=== PATIENT | female | born 1950 | race Caucasian/White ===

== ENCOUNTER 2018-08-19 09:10 | Emergency (ER) | payer MEDICARE ==
[~2018-08-19] VITALS: Ht 160 cm; Wt 67.0 kg
[~2018-08-19 09:10] MED LIST: ALLO100T30 PO; ASPI81TA50 PO; AZIT250T89 PO; BENZ200C2 PO; LEVO100T74 PO; MAGN100T3 PO; OMEP20TA62 PO; PIOG15TA22 PO; SIMV10TA3 PO; TRAZ-136 PO
[2018-08-19] MEDS ORDERED: SODIUM CHLORIDE FLUSH 10ML SYR IVF ONE (10:00)
[2018-08-19 10:33] LABS: BASOPHILS # (AUTO) 0.01 x10^3/uL (0-0.1); BASOPHILS % (AUTO) 0 % (0-1); EOSINOPHILS % (AUTO) 0 % (1-7); LYMPHOCYTES # (AUTO) 1.55 x10^3/uL (1-3.4); LYMPHOCYTES % (AUTO) 22 % (22-44); MD NO; MEAN CORPUSCULAR HEMOGLOBIN 32.7 pg (27.0-34.8); MEAN CORPUSCULAR HGB CONC 33.2 g/dL (32.4-35.8); MEAN CORPUSCULAR VOLUME 98.4 fL (80-100); MEAN PLATELET VOLUME 9.4 fL (7.4-10.4); MONOCYTES # (AUTO) 0.63 x10^3/uL (0.2-0.8); MONOCYTES % (AUTO) 9 % (2-9); NEUTROPHILS # (AUTO) 4.77 x10^3/uL (1.8-6.8); NEUTROPHILS % (AUTO) 69 % (42-75); PLATELET COUNT 121 x10^3/uL (130-400); RED BLOOD COUNT 3.12 x10^6/uL (3.82-5.3)
[2018-08-19 10:45] LABS: ALBUMIN 3.3 g/dL (3.4-5.0); ANION GAP 6 mmol/L (5-15); CALCIUM 9.7 mg/dL (8.5-10.1); CHLORIDE 111 mmol/L (98-107)
[2018-08-19 10:49] LABS: ALANINE AMINOTRANSFERASE 24 U/L (12-78); ALKALINE PHOSPHATASE 62 U/L (45-117); BILIRUBIN,TOTAL 0.5 mg/dL (0.2-1.0); CREATININE 3.02 mg/dL (0.55-1.02); TOTAL PROTEIN 6.8 g/dL (6.4-8.2)
[2018-08-19 10:57] LABS: MICROSCOPIC INDICATED
[2018-08-19 10:58] LABS: CULTURE INDICATED? YES
[2018-08-19] MEDS ORDERED: LEVO88TA4 PO (11:02)
[2018-08-19] MEDS ORDERED: GABA300C10 PO (11:03)
[2018-08-19] MEDS ORDERED: ASPI-621 PO (11:06)
[2018-08-19] MEDS ORDERED: ROSU20TA PO (11:06)
[2018-08-19] MEDS ORDERED: ALLO100T30 PO (11:07)
[2018-08-19] MEDS ORDERED: LOSA25TA6 PO ×2 (11:08)
[2018-08-19] MEDS ORDERED: ERGO500017 PO (11:09)
[2018-08-19] MEDS ORDERED: FERR324T5 PO (11:10)
[2018-08-19] MEDS ORDERED: VALA500T PO (11:11)
[2018-08-19] MEDS ORDERED: PREDNISOLONE (11:12)
[2018-08-19] MEDS ORDERED: INSU100I32 SC (11:13)
[2018-08-19] MEDS ORDERED: NOVOLOG SS (11:14)
[2018-08-19] MEDS ORDERED: [UNRECOGNIZED DRUG - OTHER] (11:15)
[2018-08-19 12:53] VITALS: BP 128/50
== END 2018-08-19 13:29 | disposition home or self-care (01) ==
LOC: ED 13:10
DX: M25.572 Pain in left ankle and joints of left foot (principal); E11.22 Type 2 diabetes mellitus with diabetic chronic kidney disease; N18.3 Chronic kidney disease, stage 3 (moderate); E03.9 Hypothyroidism, unspecified
CPT/HCPCS: 36415; 80053; 81001; 84550; 85025; 87086; 87186; 99285

== ENCOUNTER → 2021-02-26 | Outpatient (CLI) | payer MEDICARE ==
[~2021-02-26] MED LIST changes: +ASPI81TA45 PO; +ERGO500017 PO; +FERR324T5 PO; +FUROSEMIDE 20 MG/2 ML ONE; +GABA300C10 PO; +INSU100I32 SC; +LEVO88TA4 PO; +LOSA25TA25 PO; +NOVOLOG SS; +PREDNISOLONE; +ROSU20TA2 PO; +SIMV10TA18 PO; -SIMV10TA3 PO; -TRAZ-136 PO; +TRAZ50TA66 PO; +VALA500T8 PO; +[UNRECOGNIZED DRUG - OTHER]
== END | disposition home or self-care (01) ==
LOC: RAD 12:32
PROVIDERS: ATTEND Urology
DX: N13.30 Unspecified hydronephrosis (principal)
CPT/HCPCS: 78708; A9562; J1940

== ENCOUNTER 2021-04-24 10:54 | Day surgery (SDC) | payer MEDICARE ==
[~2021-04-24] VITALS: Ht 160 cm; Wt 70.0 kg
[~2021-04-24 10:54] MED LIST changes: -FUROSEMIDE 20 MG/2 ML ONE
[2021-04-24 11:28] VITALS: BP 152/66
[2021-04-24] MEDS ORDERED: CEFAZOLIN PMX 1GM/50ML 50 ML IV ONE (11:30)
[2021-04-24] MEDS ORDERED: SODIUM CHLORIDE 0.9% 1,000 ML IV SCH ×2 (11:30→13:20)
[2021-04-24] MEDS ORDERED: DENO60DI SC (11:45)
[2021-04-24] MEDS ORDERED: iron PO (11:45)
[2021-04-24] MEDS ORDERED: LEVO88TA4 PO ×2 (11:45)
[2021-04-24] MEDS ORDERED: OMEP-110 PO (11:45)
[2021-04-24] MEDS ORDERED: calcium PO (11:45)
[2021-04-24] MEDS ORDERED: SODI650T PO (11:45)
[2021-04-24] MEDS ORDERED: PRED5DRO2 RIGHTEYE (11:45)
[2021-04-24] MEDS ORDERED: PIOG30TA68 PO (11:45)
[2021-04-24] MEDS ORDERED: LOSA25TA25 PO (11:45)
[2021-04-24] MEDS ORDERED: GABA300C PO (11:45)
[2021-04-24] MEDS ORDERED: INSU100I32 SC (11:45)
[2021-04-24] MEDS ORDERED: ALLO300T PO (11:45)
[2021-04-24] MEDS ORDERED: MAGN400T9 PO (11:45)
[2021-04-24] MEDS ORDERED: ROSU10TA2 PO (11:45)
[2021-04-24] MEDS ORDERED: ASPI81TA45 PO (11:45)
[2021-04-24] MEDS ORDERED: INSU100C5 SQ-INSULIN (11:45)
[2021-04-24] MEDS ORDERED: CALC0.25 PO (11:45)
[2021-04-24] MEDS ORDERED: LIDOCAINE 1%, 20ML ONE (12:22)
[2021-04-24] MEDS ORDERED: FENTANYL PF 100 MCG/2ML ONE ×2 (12:28)
[2021-04-24] MEDS ORDERED: MIDAZOLAM 1 MG/ML, 5ML ONE (12:28)
[2021-04-24] MEDS ORDERED: NALOXONE 1 MG/ML, 2ML ONE (12:28)
[2021-04-24] MEDS ORDERED: FLUMAZENIL 0.1 MG/1 ML, 5ML ONE (12:28)
[2021-04-24] MEDS ORDERED: VISIPAQUE 270 MG/ML, 50ML BOTTLE ONE (13:14)
== END 2021-04-24 14:01 | disposition home or self-care (01) ==
LOC: OUT 10:54 → EDSTATUS 13:00 → OUT 14:01
PROVIDERS: ATTEND Urology
DX: N13.30 Unspecified hydronephrosis (principal); E11.22 Type 2 diabetes mellitus with diabetic chronic kidney disease; I12.9 Hypertensive chronic kidney disease with stage 1 through stage 4 chronic kidney disease, or unspecified chronic kidney disease; N18.4 Chronic kidney disease, stage 4 (severe); Z79.4 Long term (current) use of insulin; Z79.890 Hormone replacement therapy; Z79.899 Other long term (current) drug therapy; Z87.442 Personal history of urinary calculi; Z88.8 Allergy status to other drugs, medicaments and biological substances; Z90.5 Acquired absence of kidney
CPT/HCPCS: 50432; 99156; 99157; C1729; C1769; C1894; J0690; J2250; J3010; J7030; Q9966; 76937; 76942; J2310

== ENCOUNTER 2021-06-20 12:09 | Outpatient (CLI) | payer MEDICARE ==
[~2021-06-20 12:09] MED LIST changes: +ALLO300T PO; +CALC0.25 PO; +DENO60DI SC; +GABA300C PO; +INSU100C5 SQ-INSULIN; +MAGN400T9 PO; +OMEP-110 PO; +PIOG30TA68 PO; +PRED5DRO2 RIGHTEYE; +ROSU10TA2 PO; +SODI650T PO; +calcium PO; +iron PO
[2021-06-20] MEDS ORDERED: LIDOCAINE 1%, 10ML ONE (12:16)
[2021-06-20] MEDS ORDERED: VISIPAQUE 270 MG/ML, 50ML BOTTLE ONE (13:01)
== END 2021-06-20 23:59 | disposition home or self-care (01) ==
LOC: RAD 12:09
PROVIDERS: ATTEND Urology
DX: Z43.6 Encounter for attention to other artificial openings of urinary tract (principal); N13.30 Unspecified hydronephrosis
CPT/HCPCS: 50435; C1729; C1769; Q9966

== ENCOUNTER → 2021-06-26 | Outpatient (CLI) | payer MEDICARE ==
[2021-06-26 07:41] LABS: CHLORIDE 111 mmol/L (98-107)
[2021-06-26 07:53] LABS: ALANINE AMINOTRANSFERASE 17 U/L (12-78); ALBUMIN 3.5 g/dL (3.4-5.0); ALKALINE PHOSPHATASE 66 U/L (45-117); ANION GAP 11 mmol/L (5-15); BILIRUBIN,TOTAL 0.3 mg/dL (0.2-1.0); CALCIUM 7.7 mg/dL (8.5-10.1); CHOL/HDL RATIO 2.1; CHOLESTEROL, TOTAL 119 mg/dL (140-239); FREE T4 (FREE THYROXINE) 1.32 ng/dL (0.76-1.46); HDL CHOL % 48 % (28-40); HDL CHOLESTEROL (DIRECT) 57 mg/dL (40-60); LDL CHOLESTEROL,CALCULATED 36 mg/dL (54-169); LDL/HDL RATIO 0.6 (0.5-3.0); TOTAL PROTEIN 7.3 g/dL (6.4-8.2); TRIGLYCERIDES 129 mg/dL (50-200); VLDL CHOLESTEROL 26 mg/dL (0-25)
== END | disposition home or self-care (01) ==
LOC: LAB 07:11
PROVIDERS: ATTEND Internal Medicine
DX: E11.21 Type 2 diabetes mellitus with diabetic nephropathy (principal); E78.5 Hyperlipidemia, unspecified; E03.9 Hypothyroidism, unspecified
CPT/HCPCS: 36415; 80053; 80061; 83036; 84439; 84443